=== PATIENT | female | born 1980 | race Caucasian/White ===

== ENCOUNTER → 2018-07-03 | Outpatient (CLI) | payer OTHER ==
[~2018-07-03] MED LIST: IBUP-1223 PO; OXYC-302 PO
== END | disposition home or self-care (01) ==
LOC: CFH 14:30
PROVIDERS: ATTEND Physician Assistant
DX: I34.1 Nonrheumatic mitral (valve) prolapse (principal); R00.2 Palpitations
CPT/HCPCS: 93306